=== PATIENT | female | born 1995 | race Caucasian/White ===

== ENCOUNTER 2022-09-11 12:01 | Outpatient (CLI) | payer BC, SELFPAY ==
--- NOTE | 2022-09-11 12:15 | CRLHL7_ITS ---
For Patients: As a result of the Cures Act, medical imaging exams and procedure reports are released immediately into your electronic medical record. You may view this report before your referring provider. If you have questions, please contact your health care provider. INDICATION: First trimester scan, establish dates. COMPARISON: None. TECHNIQUE: Real-time morales-scale imaging of the pelvis was performed. FINDINGS: Sonographic imaging demonstrates a single living intrauterine gestation. The embryo demonstrates a regular cardiac rate measuring 180 beats per minute. The embryo`s crown-rump length measurement of 2.1 cm corresponds to a gestational age of 8 weeks 5 days with a sonographic due date of April 18, 2023. There is a normal-appearing yolk sac measuring 3.9 mm. There are no gross abnormalities noted within the embryo at this early state of development. The placenta has not yet developed. The gestational sac has a normal appearance. Subchorionic hemorrhage toward the left of midline measuring 35 x 3 x 16 mm mm. Perigestational hemorrhage. The amount of fluid within the sac appears appropriate for gestational age. The cervix is closed. The myometrium appears normal. The ovaries are of normal size. The right ovary measures 4.9 x 2.3 x 3 cm. The left ovary measures 3.3 x 2.0 x 2.4 cm. Small corpus luteum cyst of on the right measuring 3.0 x 2.0 x 2.3 cm. There are no suspicious fluid collections noted in the cul-de-sac. IMPRESSION: Normal first trimester OB ultrasound exam. Gestational age calculated at 8 weeks 5 days with a sonographic due date of April 18, 2023. Subchorionic hemorrhage to the left of midline measuring up to 35 mm. Dictated by Zachariah Sanchez MD @ 09/11/2022 2:16:02 PM (Electronically Signed)
== END 2022-09-11 12:02 | disposition home or self-care (01) ==
LOC: US 12:03
PROVIDERS: Visit Provider Physician Assistant
DX: Z34.91 Encounter for supervision of normal pregnancy, unspecified, first trimester (principal); Z3A.09 9 weeks gestation of pregnancy
CPT/HCPCS: 76817; 82565; 82570; 84156; 84450; 84460; 84520; 86592; 86703; 86762; 86787; 86803; 86850; 86900; 86901; 87086; 87340; 87491; 87591

== ENCOUNTER 2022-11-20 11:53 | Outpatient (CLI) | payer BC, SELFPAY ==
--- NOTE | 2022-11-20 12:15 | CRLHL7_ITS ---
For Patients: As a result of the Century Cures Act, medical imaging exams and procedure reports are released immediately into your electronic medical record. You may view this report before your referring provider. If you have questions, please contact your health care provider. INDICATION: Evaluate anatomy. COMPARISON: 09/11/2022 TECHNIQUE: Real time morales scale imaging of the fetus was performed as well as color Doppler analysis of the umbilical vessels. FINDINGS: Sonographic imaging demonstrates a single living intrauterine gestation. Fetus demonstrates a regular cardiac rate of 149 beats per minute. Fetus has a vertex position. The placenta lies anteriorly with evidence of placenta previa, confirmed with transvaginal imaging. Amniotic fluid volume appears normal. Single deepest vertical pocket: 4.5 cm. The cervix is closed and measures 3.9 cm in length. The composite ultrasound gestational age is calculated at 19 weeks 3 days with an estimated sonographic due date of 04/13/2023. The estimated weight is 286 grams which lies at the 56th %. The following biometric measurements were obtained: Biparietal diameter: 4.3 cm/19 weeks 1 day 51st% Head circumference: 16.2 cm/19 weeks 0 days 34th% Abdominal circumference: 14.0 cm/19 weeks 3 days 55th% Femur length: 3.0 cm/19 weeks 2 days 48th% The HC/AC ratio measures: 1.15 range (1.08-1.26) On anatomic survey, there is a normal appearance of the cerebral ventricles, cavum septi pellucidi, cisterna magna and cerebellum. Incomplete visualization of the profile due to position. The cervical, thoracic and lumbar spine are well visualized and appear normal. There is a normal four-chamber heart view and the left and right ventricular outflow tracts appear normal. The diaphragm and stomach appear normal. The kidneys and bladder also appear normal. There is a normal three-vessel cord and cord insertion site. The four extremities appear normal. IMPRESSION: Concordance of clinical and sonographic dating. Incomplete visualization of the profile due to position. Remainder of the anatomic survey is normal. Short-term follow-up suggested. Complete previa. Follow-up in the third-trimester recommended. Dictated by Milo Saucedo MD @ 11/20/2022 2:58:13 PM (Electronically Signed)
== END 2022-11-20 11:54 | disposition home or self-care (01) ==
LOC: US 11:54
PROVIDERS: Visit Provider Obstetrics & Gynecology
DX: Z34.92 Encounter for supervision of normal pregnancy, unspecified, second trimester (principal); Z3A.19 19 weeks gestation of pregnancy
CPT/HCPCS: 76805; 76817

== ENCOUNTER 2023-01-20 12:52 | Outpatient (CLI) | payer BC, SELFPAY | END 2023-01-20 12:53 | disposition home or self-care (01) | LOC: NFLDREF 01-23 10:34 | PROVIDERS: Visit Provider Obstetrics & Gynecology | DX: Z34.92 Encounter for supervision of normal pregnancy, unspecified, second trimester (principal); Z3A.27 27 weeks gestation of pregnancy | CPT/HCPCS: 86592 ==

== ENCOUNTER 2023-03-20 14:57 | Inpatient (IN) | payer BC, SELFPAY ==
[2023-03-20] VITALS (23 sets, daily range): BP systolic 99–140; BP diastolic 56–87; PULSE 57–120; RESP 15–18; TEMP 36.8–37.5; O2SAT 96–100; BMI 24.8
--- NOTE | 2023-03-20 15:00 | CRLHL7_ITS ---
For Patients: As a result of the Cures Act, medical imaging exams and procedure reports are released immediately into your electronic medical record. You may view this report before your referring provider. If you have questions, please contact your health care provider. INDICATION: PRE-ECLAMPSIA LIMITED OBSTETRICAL ULTRASOUND FOR BIOPHYSICAL PROFILE Technique: Multiple transabdominal sonographic images of the gravid uterus were performed. Findings: There is a single, live, intrauterine gestation in vertex position. cardiac activity is present with a heart rate of 154 BPM. The placenta is posterior in position and there is no evidence of previa or abruption. Amniotic fluid volume appears subjectively normal and the single deepest pocket measures 3.6 centimeters. Evaluation of biophysical profile shows absent breathing movements and gross body movements, but satisfactory tone and amniotic fluid for a biophysical profile score of 4 out of 8. IMPRESSION: 1. Single, live, intrauterine gestation in vertex position. 2. Biophysical profile score of 4 out of 8, with points detracted for absent breathing movements and gross body movements. RAQUEL LOPEZ MD [employer] Dictated by Yandel Lopez MD @ 03/20/2023 4:32:35 PM Dictated by: Yandel Lopez MD @ 03/20/2023 16:35:17 (Electronically Signed)
--- NOTE | 2023-03-20 15:29 | W.PM.LDBA ---
Subjective History of Present Illness Date Seen: 03/20/23 Narrative: Patient is being admitted to Labor and Delivery for repeat delivery. She is a 27 year old woman at 36 weeks, 2 days gestation. She was diagnosed with preeclampsia without severe features earlier this week. She had testing today, beginning with a nonstress test; this showed recurrent variable decelerations. This was then followed by BPP, which was 4/8, missing 2 for gross body movements and breathing. Fetus was cephalic, SDP 3.6, HR 154. Her full history and physical was dictated by Dr. Montez on 03/18/2023. Please see this for details. Specific Issues/Plans MD Repeat delivery 1. History of preeclampsia, readmission for worsening blood pressures 2. New diagnosis of preecclampsia on 03/18 Baseline pre E labs: all normal pr/cr ratio: 0.00 Aspirin 81 mg, stopped 03/18/2023. Elevated BP 03/18/23; sent to Center for serial BP and labs. Diagnosed with preE w/o SF - normal HELLP labs --> rC/S on 03/25 scheduled. 2. History of Arrest of descent and OT position 3. Varicella nonimmune Vaccination 4. FAS with complete previa, limited views on anatomy due to position. -MFM consult, level 2 US: Evaluate anatomy further and placenta- risk for abnormal placentation: MFM EXAM ON 12/04/22: NO PLACENTA PREVIA, POSTERIOR MORE THAN 2 CM AWAY FROM CERVIX. Normal anatomy, EFW: 387 g 41 percentile. Cephalic presentation, three-vessel umbilical cord, normal amount of amniotic fluid. No further MFM ultrasounds indicated at this time. TDAP: 02/03/23 RSV vaccine 03/03/23 OB - Problem Based A/P Additional Plan (1) Preeclampsia: Problem details: Diagnosed with preE w/o SF in triage on 03/18. Status: Acute Plan: Still without severe features, but with testing nonreassuring today. Plan is for repeat today. She has already received 2 doses of betamethasone. We will use cefazolin for preoperative prophylaxis. Consent form was reviewed with and signed by Dr. Hernandez earlier today. (2) Previous section: Status: Acute Plan: Repeat today Delivery/Labor/Induction Plan Plan: Section OB Result Labs Labs: HELLP labs normal, aside from protein: Creatinine = 0.4 on 03/18/2023. Repeat labs are pending at this time OB Exam Physical Exam Vital signs: Pulse BP Pulse Ox 113 H 140/87 H 98 03/20/23 15:27 03/20/23 15:27 03/20/23 15:27 Narrative: General: Pleasant, no acute distress Heart: Regular rate and rhythm, no murmur or gallop Lungs: Clear to auscultation bilaterally tracing: Currently with baseline 140, accelerations present, no decelerations, minimal to moderate variability
[2023-03-20 15:30] LABS: Hematocrit 35.1 % (33.0-51.0); Hemoglobin* 11.6 gm/dL (12.0-16.0); Mean Corpuscular HGB Conc 33 gm/dL (32-36); Mean Corpuscular Hemoglobin 30 pg (26-34); Mean Corpuscular Volume 90 fL (80-100); Platelet Count* 320 K/uL (140-440); Red Blood Count 3.92 m/uL (4.00-5.20)
[2023-03-20 15:37] LABS: White Blood Count* 25.54 K/uL (4.50-11.00)
[2023-03-20] MEDS: LACTATED RINGERS 1000 ML 1,000 ML 1100 ML IV (15:46)
[2023-03-20 15:49] LABS: Alanine Aminotransferase* 19 U/L (4-35); Aspartate Amino Transferase* 33 U/L (12-35); Creatinine* 0.5 mg/dL (0.5-1.5); Estimated Glomerular Filt Rate 131 ml/min
[2023-03-20] MEDS: CEFAZOLIN 2 GM INJ IVP (16:02)
[2023-03-20] MEDS: LACTATED RINGERS 1000 ML 1,000 ML 125 ML IV ×2 (16:19→19:00)
--- NOTE | 2023-03-20 17:05 | P.OBPRC_ITS ---
Procedure Date of procedure: 03/20/23 Procedure Done: Global Will [facility] bill your pro fee for this procedure?: Yes Blood Loss Measurement Type: QBL (477 mL) Bakri Used: No IV fluids (mL): 1,200 Surgeon: Claudia Montez MD Anesthesia Type: Spinal Procedure Description: PREOPERATIVE DIAGNOSIS: 1. 36 weeks, 2 days gestation 2. Preeclampsia without severe features 3. Nonreassuring antepartum testing 4. Previous , desires repeat POSTOPERATIVE DIAGNOSIS: Same PROCEDURE: Primary low-transverse section SURGEON: Claudia Montez MD ANESTHESIA: Spinal IV FLUIDS: 1200 mL QBL: 477 mL FINDINGS: 1. Female infant, cephalic lie, true knot in cord, Apgars 8 and 9, weight 6 lb, 5 oz 2. Normal appearance to uterus, bilateral tubes and ovaries. COMPLICATIONS: None PROCEDURE IN DETAIL: Patient was taken to the operating room with IV running. She received cefazolin in preoperative prophylaxis. Spinal anesthesia was administered. Magallon catheter was inserted. She was prepped and draped in the usual sterile fashion. Anesthesia was tested and found to be adequate. A low-transverse skin incision was made with a scalpel and carried through to the underlying layer of fascia with the scalpel. The subcutaneous fat was dissected off the underlying fascia with Bovie. The fascia was nicked in the midline with a scalpel, and this incision was extended laterally with scissors. The rectus muscles were in the midline. Peritoneum was identified and entered bluntly. Bovie was used to widen this opening. Severino O retractor was inserted and tightened down, providing excellent visualization of the lower uterine segment. The bladder reflection was found to be well below the planned site for hysterotomy. Low-transverse uterine incision was made with a scalpel. Incision was widened bluntly. The 's head was grasped through the hysterotomy and delivered wi th the help of fundal pressure. The remainder of the body delivered without incident. Cord was clamped and cut after 30 seconds. Infant was handed off to attending nurses. The placenta was delivered with gentle traction on the cord. The uterus was exteriorized and cleaned of all clots and debris with the dry lap pad. The hysterotomy was reapproximated with 0 Vicryl in a running, locked fashion. Second layer of the same suture was used in imbricating fashion to obtain hemostasis. The adnexa were examined and noted to be normal in appearance. The cul-de-sac and gutters were cleansed with dampened laparotomy sponge, removing any further clots and debris. The uterus was returned to the abdomen, and hemostasis was again noted. The Severino O retractor was removed. The hysterotomy was reexamined and found to be hemostatic. The peritoneum was reapproximated with 2 0 Vicryl in a running fashion. The rectus muscles were examined and found to be hemostatic. The fascia was reapproximated with 0 Vicryl in a running fashion. Subcutaneous fat was irrigated and Bovie used on oozing vessels. The skin was closed with a subcuticular stitch of 4-0 Monocryl. Surgical glue was applied a virgil this. Patient tolerated procedure well was taken to recovery area in stable condition. Pathology: specimen obtained, sent to pathology (Placenta sent to pathology) Surgery Debrief Performed: Yes Surgery Debrief Comment: Verbally confirmed my request to send placenta to pathology
--- NOTE | 2023-03-20 18:53 | P.ANES_ITS ---
Anesthesia Charges Start Date/Time Anesthesia Start Date: 03/20/23 Anesthesia Start Time: 15:59 Stop Date/Time Anesthesia Stop Date: 03/20/23 Anesthesia Stop Time: 17:20 Summary Emergency: MEDICAL TECHNOLOGIST CHEMISTRY
[2023-03-20 21:36] LABS: Slide Review Reflex No
[2023-03-20 21:37] LABS: Slide Review Acceptable Review (Acceptable)
[2023-03-20] MEDS: KETOROLAC 30 MG/ML inj IVP (23:10)
[2023-03-21] VITALS (16 sets, daily range): BP systolic 105–132; BP diastolic 57–82; PULSE 55–70; RESP 14–16; TEMP 36.6–36.9; O2SAT 96–99
[2023-03-21] MEDS: KETOROLAC 30 MG/ML inj IVP ×3 (05:52→18:04)
[2023-03-21 09:02] LABS: Hematocrit 32.7 % (33.0-51.0); Hemoglobin* 10.6 gm/dL (12.0-16.0); Mean Corpuscular HGB Conc 32 gm/dL (32-36); Mean Corpuscular Hemoglobin 30 pg (26-34); Mean Corpuscular Volume 91 fL (80-100); Platelet Count* 268 K/uL (140-440); Red Blood Count 3.58 m/uL (4.00-5.20); White Blood Count* 23.29 K/uL (4.50-11.00)
[2023-03-21 09:06] LABS: Slide Review Reflex No
[2023-03-21 09:18] LABS: Alanine Aminotransferase* 22 U/L (4-35); Aspartate Amino Transferase* 37 U/L (12-35); Blood Urea Nitrogen* 12 mg/dL (5-24); Creatinine* 0.5 mg/dL (0.5-1.5); Estimated Glomerular Filt Rate 131 ml/min
--- NOTE | 2023-03-21 09:50 | PM.OBPNVD1 ---
OB - PN:Subj Subjective Time Seen by Provider: 09:51 Date Seen: 03/21/23 Patient comments OB post-: pain well controlled Bantam status: Bantam feeding status: exclusively Narrative: Patricia is pod#1 from a [facility] for nonreassuring testing at 36 weeks 2 days gestation in a patient with mild preeclampsia. Blood pressures have been 130/80s. She denies headache, visual changes, right upper quadrant pain notes some swelling in her feet but not severe. She has passed gas, is tolerating a regular diet and had her Magallon catheter removed this morning at 6:00 a.m., urine output has been adequate. Planning on discharge home tomorrow or Thursday. OB - PN: Obj Exam Physical Exam: Vital signs: Temp Pulse Resp BP Pulse Ox O2 Del Method 97.9 F 60 16 132/79 98 Room Air 03/21/23 07:40 03/21/23 07:40 03/21/23 07:40 03/21/23 07:40 03/21/23 07:40 03/21/23 07:40 Narrative: GENERAL APPEARANCE: Pleasant, , well-groomed woman in no acute distress. VITAL SIGNS: as noted in nursing notes HEAD: Normocephalic, atraumatic. THYROID: no masses, nodularity, tenderness or enlargement. LUNGS: Clear to auscultation bilaterally without wheezes, rales or rhonchi. HEART: Regular rate and rhythm with normal S1 and S2. No gallop, rub or murmur. ABDOMEN: Soft, nontender, nondistended, with normal bowels sounds throughout. Fundus firm in the midline, 3 cm below the umbilicus. INCISION: Clean, dry and intact with sutures and skin adhesive gel EXTREMITIES: No cyanosis, clubbing, or varicosities. Minimal bilateral lower extremity edema. NEUROLOGIC: Normal gait and balance. Normal deep tendon reflexes at bilateral patella 2+/2, equal without clonus. PSYCHIATRIC: alert and oriented x3. Normal speech pattern, eye contact and affect. SKIN: Warm, dry, and well perfused. Good turgor. No lesions, nodules or rashes. Urinary Catheter Management: Urethral: Cath placed during this visit: no Reason for continuing: prolonged immobilization OB - PN: Obj Data Labs Labs: Laboratory Results - last 24 hr 12/29/23 12/30/23 15:17 08:56 WBC 25.54 H* 23.29 H RBC 3.92 L 3.58 L Hgb 11.6 L 10.6 L Hct 35.1 32.7 L MCV 90 91 MCH 30 30 MCHC 33 32 Plt Count 320 268 Diff Slide Review Acceptable Review BUN 12 Creatinine 0.5 0.5 Estimated Creat Clear 162.90 162.90 Estimated GFR 131 131 AST 33 37 H ALT 19 22 Blood Type A Positive Antibody Screen NEGATIVE OB - PN: A/P Delivery Assessment and Plan (1) Preeclampsia: Problem details: Diagnosed with preE w/o SF in triage on 03/18. Status: Acute Assessment and Plan: 1. I ordered a set of preeclampsia labs for this morning, results are pending. 2. Expecting discharge tomorrow or Thursday. (2) Previous section: Status: Acute
[2023-03-21] MEDS: DOCUSATE SODIUM 100 MG CAPSULE PO (18:05)
[2023-03-21] MEDS: ACETAMINOPHEN 500 MG TABLET 1000 MG PO (19:51)
[2023-03-21] MEDS: IBUPROFEN 600 MG TABLET PO (23:46)
[2023-03-22 03:11] VITALS: BP 130/87; PULSE 60; RESP 16; TEMP 36.6; O2SAT 100
[2023-03-22] MEDS: ACETAMINOPHEN 500 MG TABLET 1000 MG PO ×2 (03:18→10:03)
--- NOTE | 2023-03-22 03:29 | P.DS_ITS ---
DS: Providers Provider Time Seen by Provider: 03:29 Date Seen: 03/22/23 Date of admission: 03/20/23 14:57 Primary care physician: Not a Local Provider Admitting Clinician: Claudia Montez MD Attending Physician on discharge: Claudia Montez MD Date of Discharge: 03/22/23 DS: Diagnosis Discharge Diagnosis (1) Status post repeat low transverse section: Status: Acute Problem details: 36w2d for non-reassuring testing. Preeclampsia w/o sf. Girl. True knot in the cord. Shelley Exam Narrative: Exam Narrative: GENERAL APPEARANCE: Pleasant, [race], well-groomed woman in no acute distress. VITAL SIGNS: as noted in nursing notes HEAD: Normocephalic, atraumatic. THYROID: no masses, nodularity, tenderness or enlargement. LUNGS: Clear to auscultation bilaterally without wheezes, rales or rhonchi. HEART: Regular rate and rhythm with normal S1 and S2. No gallop, rub or murmur. ABDOMEN: Fundus firm at 3 cm below the umbilicus in the midline. Soft, nontender, nondistended, with normal bowels sounds throughout. INCISION: Clean, dry and intact with sutures and skin adhesive EXTREMITIES: No cyanosis, clubbing, or edema. No varicosities. NEUROLOGIC: Normal gait and balance. Normal deep tendon reflexes at bilateral patella 2+/2, equal without clonus. PSYCHIATRIC: alert and oriented x3. Normal speech pattern, eye contact and affect. SKIN: Warm, dry, and well perfused. Good turgor. No lesions, nodules or rashes. Const: Vital Signs, click to edit/add: Vital Signs - 24 hr 03/21/23 03:53 03/21/23 04:02 03/21/23 04:53 Temperature 97.9 F Pulse Rate [Pulse Oximeter] 55 L Respiratory Rate 15 15 15 Blood Pressure [Ri ght Arm] 123/79 Pulse Oximetry 96 Oxygen Delivery Me thod Room Air 03/21/23 05:53 03/21/23 07:40 03/21/23 12:53 Temperature 97.9 F Pulse Rate [Pulse Oximeter] 60 Respiratory Rate 16 16 14 Blood Pressure [Ri ght Arm] 132/79 Pulse Oximetry 98 Oxygen Delivery Me thod Room Air 03/21/23 13:40 03/21/23 14:00 03/21/23 15:00 Temperature 98.5 F Pulse Rate [Pulse Oximeter] 61 Respiratory Rate 14 14 14 Blood Pressure [Ri ght Arm] 105/57 L Pulse Oximetry 97 Oxygen Delivery Me thod Room Air 03/21/23 18:12 03/21/23 19:42 03/21/23 23:34 Temperature 98.3 F 98.2 F 97.9 F Pulse Rate [Pulse Oximeter] 70 67 62 Respiratory Rate 16 16 16 Blood Pressure [Ri ght Arm] 126/80 132/80 122/73 Pulse Oximetry 97 97 99 Oxygen Delivery Me thod Room Air Room Air Room Air 03/22/23 03:11 Temperature 97.9 F Pulse Rate [Pulse Oximeter] 60 Respiratory Rate 16 Blood Pressure [Ri ght Arm] 130/87 Pulse Oximetry 100 Oxygen Delivery Me thod Room Air OB - DS: Summary Hospital Course Hospital Course: Patricia is a 27 year old G 2 P 1001 now 2 at 36 weeks 2 days gestation that was admitted to the Center on 03/20/23 for repeat low-transverse section for nonreassuring testing. She had an uncomplicated repeat montez arean delivery. She delivered a viable female infant. She is breast feeding. the patient has done well. Her blood pressure was somewhat variable: 105-132/57-87. I will have her present the clinic in the next week for a blood pressure check as her was complicated by preeclampsia without severe features. Her infant was transferred to intensive care unit due to inability to stabilize blood sugar. Peripartum Data Infant delivery method: Repeat Section Procedures: Procedures Operation Date: 03/20/23 16:15 Actual Procedure Side Surgeon p Section Claudia Montez MD [place] Gender: Female Infant Discharge Plan: Home Time Spent with Patient Time attestation: Total time spent providing and/or coordinating discharge services: Discharge Plan Discharge Disposition: Home, Self-Care Date of Admission: 03/20/23 14:57 Attending Provider on Discharge: Olive Youssef Primary Care Provider: Provider,Not a Local Condition: Stable Anticipated Discharge Date/Time: 03/22/23 12:30 Discharge Medications: New docusate sodium 100 mg Capsule 100 mg PO BID PRNQty: 100 0RF ibuprofen 600 mg Tablet 600 mg PO Q6H PRN (Reason: Pain) Qty: 30 0RF oxycodone 5 mg Tablet 5 mg PO 3XD PRN (Reason: Pain) Qty: 21 0RF Continued DHA 200 mg capsule 200 mg PO DAILY ferrous sulfate 325 mg (65 mg iron) tablet 325 mg PO Q OTHER DAY Qty: 30 0RF Discharge Orders: Discharge Order (Routine); Ordered 03/22/23 Ordered By: Olive Youssef Patient Education: (DC) Additional Instructions: ACTIVITY RESTRICTIONS: * Nothing vaginally for 6 weeks: no tampons/intercourse * No driving while taking narcotic pain medication during the day. 1-2 weeks. Okay to be the passenger anytime. * Lifting restriction: Maximum of 20 pounds for 6 weeks. * High impact or core exercises: 6 weeks. * Submerge the incision in water (bath/pool/carreon): 2 weeks. * Off of work/school for a minimum of 8 weeks NO RESTRICTIONS for: * Walking * Going up/down stairs * Showering Symptoms to report to doctor: -Bleeding that saturates more than one pad per hour ?-Passing clots larger than the size of a golf ball ?-Pain not relieved by prescribed medication ?-Fever above 100.4 degrees Fahrenheit ?-A foul vaginal odor ?-Difficulty in emotions, mood and functions ?-Thoughts of hurting yourself and/or ?-Painful, reddened area in your breast ?-Any drainage, redness or tenderness in your IV/epidural site ?-Severe headache that doesn't improve after taking medications ?-Changes in vision, including temporary loss of vision, blurred vision, and/or light sensitivity ?-Upper abdominal pain (usually under ribs on the right side) ?-Decrease in urination or painful, frequent urinating ?-Chest pain ?-Shortness of breath ?-Tenderness or pain with redness and/swelling in the calf(s) of your leg Follow-up: [facility]. [facility] a blood pressure check. 2. A 6 week visit for an annual physical exam. consultation services are available to all mothers and babies for the first year after delivery.? To make an appointment, please call [phone]. Discharge Diet: Regular Follow Up Appointments: Provider,Not a Local [Primary Care Provider] - [facility] [Provider Group] Forms: MyHealth Info Instructions
[2023-03-22] MEDS: IBUPROFEN 600 MG TABLET PO (08:18)
[2023-03-22] MEDS: DOCUSATE SODIUM 100 MG CAPSULE PO (08:18)
[2023-03-22 08:27] VITALS: BP 133/92; PULSE 68; RESP 16; TEMP 36.9; O2SAT 100
== END 2023-03-22 11:25 | disposition home or self-care (01) | DRG 540 ==
LOC: OB 14:59
PROVIDERS: Obstetrics & Gynecology; Admitting Provider Obstetrics & Gynecology; Visit Provider Obstetrics & Gynecology
PROC: 10D00Z1 Extraction of Products of Conception, Low, Open Approach (ICD-10-PCS; CPT 59514; principal; 2023-03-20 16:00)
DX: O76 Abnormality in fetal heart rate and rhythm complicating labor and delivery (principal); O34.211 Maternal care for low transverse scar from previous cesarean delivery; O14.04 Mild to moderate pre-eclampsia, complicating childbirth; Z3A.36 36 weeks gestation of pregnancy; Z37.0 Single live birth
CPT/HCPCS: 01961; 36415; 59025; 76816; 76819; 82565; 82570; 84156; 84450; 84460; 84520; 85018; 85027; 86850; 86900; 86901; 87081; 87653; 88307; 99140; G0463; A9270; C9290; J0665; J0690; J0702; J1100; J1885; J2274; J2371; J2405; J7120